=== PATIENT | female | born 1980 | race Caucasian/White ===

== ENCOUNTER 2020-12-23 17:30 | Emergency (ER) | payer OTHER ==
[~2020-12-23 17:30] MED LIST: PERCOCET PO
[2020-12-23] MEDS ORDERED: NORCO 5-325 TA1 EACH PO (18:10)
== END 2020-12-23 18:15 | disposition home or self-care (01) ==
LOC: FER 17:30
DX: S92.352A Displaced fracture of fifth metatarsal bone, left foot, initial encounter for closed fracture (principal); I10 Essential (primary) hypertension; W22.03XA Walked into furniture, initial encounter; Y92.009 Unspecified place in unspecified non-institutional (private) residence as the place of occurrence of the external cause
CPT/HCPCS: 99283

== ENCOUNTER 2021-02-13 09:48 | Emergency (ER) | payer OTHER ==
[~2021-02-13 09:48] MED LIST changes: +NORCO 5-325 TA1 EACH PO
== END 2021-02-13 11:00 | disposition home or self-care (01) ==
LOC: FER 09:48
DX: R51.9 Headache, unspecified (principal); I10 Essential (primary) hypertension; F17.200 Nicotine dependence, unspecified, uncomplicated
CPT/HCPCS: J0780; J1885; J7040

== ENCOUNTER 2022-03-17 06:41 | Emergency (ER) | payer OTHER ==
[2022-03-17 07:17] LABS: BASOPHIL 0.4 % (0-2); HCT 47.8 % (37.0-47.0); HGB 16.6 g/dl (12.5-16.0); LYMPHOCYTE 18.8 % (15-48); MCH 33.3 pg (25.0-31.0); MCHC 34.7 g/dL (32.0-36.0); MCV 95.8 fL (78.0-100.0); MONOCYTE 5.3 % (0-12); MPV 10.3 fL (6.0-9.5); NEUTROPHIL 73.3 % (41-80); NRBC 0; PLT 288 K/uL (150-400); RBC 4.99 M/uL (4.20-5.40); WBC 8.5 K/uL (4.0-10.5)
[2022-03-17 07:51] LABS: ALBUMIN 3.8 g/dL (3.4-5.0); BILIRUBIN - TOTAL 0.5 mg/dL (0.2-1.0); BUN/CREAT RATIO (CALC) 19.1 RATIO; CREATININE 0.68 mg/dL (0.51-0.95); GLOBULIN (CALCULATION) 3.5 g/dL; MAGNESIUM 1.8 mg/dL (1.8-2.4); POTASSIUM 3.6 mmol/L (3.5-5.1); TOTAL PROTEIN 7.3 g/dL (6.4-8.2)
[2022-03-17 08:21] LABS: CORONAVIRUS 2019 SARS-COV-2 NEGATIVE (NEGATIVE)
[2022-03-17 08:22] LABS: INFLUENZA A NAA NEGATIVE (NEGATIVE)
[2022-03-17] MEDS ORDERED: FIORICET1 EACH PO (10:53)
[2022-03-17] MEDS ORDERED: ONDANSETRON ODT4 MG PO (10:53)
== END 2022-03-17 11:08 | disposition home or self-care (01) ==
LOC: FER 06:41
PROVIDERS: Internal Medicine
DX: G43.901 Migraine, unspecified, not intractable, with status migrainosus (principal); F17.210 Nicotine dependence, cigarettes, uncomplicated; Z20.822 Contact with and (suspected) exposure to COVID-19; Z88.8 Allergy status to other drugs, medicaments and biological substances
CPT/HCPCS: 36415; 70450; 80053; 83735; 84439; 84443; 85025; J1170; J2765; U0002